=== PATIENT | female | born 1975 | race Caucasian/White ===

== ENCOUNTER 2016-11-22 22:38 | Observation (INO) | payer MEDICAID ==
--- NOTE | 2016-11-22 23:19 | ED PDOC ---
Arrival/HPI - General Historian: Patient, EMS, Police <Jeramy Welch - Last Filed: 11/23/16 02:03> <Hugo Caballero - Last Filed: 11/23/16 06:04> <Joselito Shi - Last Filed: 11/23/16 10:08> - General Chief Complaint: Alcohol Ingestion Time Seen by Provider: 11/22/16 23:15 - History of Present Illness Narrative History of Present Illness (Text): 11/22/16 23:16 41 y/o female, no pmh, nkda, limited HPI can be obtained, biba with the police, found agitated in the public with the facial injury with facial injury, last tetanus doesn't remember. Pt. stated that she wants to go home, yelling and screaming, no fever or chills, no homicidal or suicidal ideation, no auditory visual hallucination, limited HPI can be obtained due to the patient's uncooperative behavior. (Jeramy Welch) Past Medical History - Provider Review Nursing Documentation Reviewed: Yes - Psychiatric Hx Substance Use: No <Jeramy Welch - Last Filed: 11/23/16 02:03> Family/Social History - Physician Review Nursing Documentation Reviewed: Yes Family/Social History: Unknown Family HX Smoking Status: joaquín Hx Alcohol Use: Yes Hx Substance Use: No <Jeramy Welch - Last Filed: 11/23/16 02:03> Allergies/Home Meds <Jeramy Welch - Last Filed: 11/23/16 02:03> <Hugo Caballero - Last Filed: 11/23/16 06:04> <Joselito Shi - Last Filed: 11/23/16 10:08> Allergies/Adverse Reactions: Allergies No Known Allergies Allergy (Verified 11/22/16 23:18) Review of Systems - Review of Systems Systems not reviewed;Unavailable: Psychotic Constitutional: absent: Fatigue, Fevers Eyes: absent: Vision Changes ENT: absent: Hearing Changes Respiratory: absent: SOB, Cough Gastrointestinal: absent: Abdominal Pain, Diarrhea, Nausea, Vomiting Skin: Other (abrasion) Neurological: absent: Headache, Dizziness, Focal Weakness <Jeramy Welch - Last Filed: 11/23/16 02:03> Physical Exam - Physical Exam Physical Exam Limitations: Intoxication Vital Signs Reviewed: Yes Temperature: Afebrile Blood Pressure: Hypertensive Pulse: Tachycardic Respiratory Rate: Normal Appearance: Positive for: Well-Appearing, Non-Toxic Pain Distress: None - Systems Exam Head: Present: Other (+ttp and swelling abrasion abrasion the lt. frontal forehead region with no laceration. ) Pupils: Present: PERRL Extroacular Muscles: Present: EOMI Conjunctiva: Present: Normal Ears: Present: NORMAL TM, Normal Canal. No: Erythema Mouth: Present: Moist Mucous Membranes Neck: Present: Normal Range of Motion, Trachea Midline. No: Meningeal Signs, MIDLINE TENDERNESS, Paraspinal Tenderness, Lymphadenopathy Respiratory/Chest: Present: Clear to Auscultation, Good Air Exchange. No: Respiratory Distress, Accessory Muscle Use Cardiovascular: Present: Regular Rate and Rhythm, Normal S1, S2. No: Murmurs Abdomen: Present: Normal Bowel Sounds. No: Tenderness, Distention, Peritoneal Signs Back: Present: Normal Inspection. No: Midline Tenderness, Paraspinal Tenderness Upper Extremity: Present: Normal Inspection. No: Cyanosis, Edema Lower Extremity: Present: Normal Inspection. No: Edema Neurological: Present: GCS=15 Skin: Present: Warm, Dry, Normal Color. No: Rashes Psychiatric: Present: Alert, Normal Insight, Normal Concentration, Agitated, Intoxicated <Jeramy Welch - Last Filed: 11/23/16 02:03> Medical Decision Making - Transfer of Care Patient signed out to Dr:: Ada <Jeramy Welch - Last Filed: 11/23/16 02:03> <Hugo Caballero - Last Filed: 11/23/16 06:04> <Joselito Shi - Last Filed: 11/23/16 10:08> ED Course and Treatment: 11/22/16 23:19 -Pt. is in the ER agitated, yelling, restraint ordered as she is started to attacking the staffs, benadryl IM ordered for sedation, will order labs. 11/22/16 23:19 -CT Head and facial -Tetanus/IV banana bag -wound irrigated with normal saline, clean with betadine, bacitracin and gauze dressing. (Jeramy Welch) - RAD Interpretation Radiology Orders: 11/22/16 23:20 HEAD W/O CONTRAST [CT] Stat MAXILLOFACIAL W/O CONTRAST [CT] Stat - Medication Orders Current Medication Orders: Discontinued Medications Diphenhydramine HCl (Benadryl) 50 mg IM STAT STA Stop: 11/22/16 23:21 Last Admin: 11/23/16 00:07 Dose: 50 mg Multivitamins/Vitamin C 10 ml/Thiamine HCl 100 mg/ Folic Acid 1 mg/ Dextrose 1, 011.2 mls @ 1,000 mls/hr IV .Q1H1M ONE Stop: 11/23/16 00:21 Last Admin: 11/23/16 03:00 Dose: Not Given Non-Admin Reason: Agitation Lorazepam (Ativan) 2 mg IM ONCE ONE PRN Reason: Protocol Stop: 11/23/16 00:54 Last Admin: 11/23/16 01:01 Dose: 2 mg Tetanus/Reduced Diphtheria/Acell Pertussis (Boostrix Vaccine Inj) 0.5 ml IM .ONCE ONE Stop: 11/22/16 23:21 Last Admin: 11/23/16 03:00 Dose: ED OBSERVATION Date of observation admission: 11/23/16 Time of observation admission: 00:00 <Jeramy Welch - Last Filed: 11/23/16 02:03> <Hugo Caballero - Last Filed: 11/23/16 06:04> Discharge: Yes <Joselito Shi - Last Filed: 11/23/16 10:08> - Observation admission statement Patient is being placed in observation because:: etoh intoxication (Jeramy Welch) - Goals of Observation Goals of observation are:: sober (Jeramy Welch) - Progress Note Progress Note: 11/23/2016 00:00 -labs/CT head/IV banana bag/tetanus/wound irrigate and clean. -observe and reassess 11/23/16 00:53 -Pt. is agitated, threatened to leave, ativan 2mg ordered. 11/23/16 02:01 -Pt. is calmed now, agreed to the radiology testing. -Pending labs -Pending radiology studies. -Case discussed and sign out to the ER attending Dr. Caballero, pending for the dispo. (Jeramy Welch) 11/23/16 04:00 Pt refusing labs. Pt in no acute distress. Reviewed radiology, CT Head shows: Brain: Motion artifact limits evaluation for intracranial hemorrhage on several CT slices (series 2 images 20-24). Aside from the areas of artifact, there is no visualized acute intracranial hemorrhage. The base of the brain extends out of the [id number] of this study. The white- mcneill differentiation is preserved demonstrating no acute territorial type infarct. Midline shift: There is no midline shift. Ventricles: No ventriculomegaly. Bones/joints: The calvarium demonstrates no evidence for a depressed fracture. Soft tissues: There is soft tissue swelling/hematoma of the left frontal scalp. Sinuses: See facial CT report from the same day. Mastoid air cells: No mastoid effusion. IMPRESSION: 1. There is soft tissue swelling/hematoma of the left frontal scalp. 2. Motion artifact limits evaluation for intracranial hemorrhage on several CT slices. The base of the brain extends out of the [id number] of this study. Repeat/additional CT images are recommended. 3. Aside from the areas of limitation, there is no visualized acute intracranial hemorrhage. CT Maxillofacial shows: Bones/joints: No acute facial bone fracture. Soft tissues: There is soft tissue swelling/hematoma of the left frontal scalp and supraorbital region. Orbits: No acute abnormality. Sinuses: There is mild mucosal thickening of the right frontal sinus. IMPRESSION: 1. There is soft tissue swelling/hematoma of the left frontal scalp and supraorbital region. 2. No acute facial bone fracture. 3. Paranasal sinus disease is noted above. 11/23/16 07:[address] Shi, pending sobriety, re-evaluation, and final disposition. (Hugo Caballero) 11/23/16 07:00 Case endorsed to fl Dr. Caballero. Pending sobriety, reevaluation and final disposition. Currently patient is resting comfortably in the emergency department with stable vitals. 11/23/16 10:07 Patient is alert, oriented X3, and ambulatory with steady gait. Patient is stable for discharge. (Joselito Shi) - PA / RETAIL SALES DIRECTOR / Resident Statement / has reviewed & agrees with the documentation as recorded. <Jeramy Welch - Last Filed: 11/23/16 02:03> - PA / RETAIL SALES DIRECTOR / Resident Statement ZO has reviewed & agrees with the documentation as recorded. ZO has examined the patient and agrees with the treatment plan. <Hugo Caballero - Last Filed: 11/23/16 06:04> Disposition/Present on Arrival - Present on Arrival Any Indicators Present on Arrival: No History of DVT/PE: No History of Uncontrolled Diabetes: No Urinary Catheter: No History of Decub. Ulcer: No History Surgical Site Infection Following: None - Disposition Have Diagnosis and Disposition been Completed?: Yes Disposition Time: 23:22 <Jeramy Welch - Last Filed: 11/23/16 02:03> <Hugo Caballero - Last Filed: 11/23/16 06:04> - Disposition Patient Plan: Discharge <Joselito Shi - Last Filed: 11/23/16 10:08> - Disposition Diagnosis: Abrasion, Alcohol intoxication Patient Problems: Current Active Problems Problem Status Onset Abrasion Acute Alcohol intoxication Acute Condition: STABLE
[2016-11-22] MEDS ORDERED: DiphenhydrAMINE 50 mg/ml Inj IM STA (23:20)
[2016-11-22] MEDS ORDERED: TDAP Vaccine 0.5 mL Syr IM ONE (23:20)
[2016-11-22] MEDS ORDERED: Multivitamin (MVI) 10 ML, Thiamine 100 MG, Folic Acid 1 MG in Dextrose 5% In Water 1,00... IV ONE (23:21)
--- NOTE | 2016-11-23 02:24 | CT ---
EXAM: CT Maxillofacial Without Intravenous Contrast CLINICAL HISTORY: The patient age is 41 years old and is female; Injury or trauma; Fall; Initial encounter; Concussion /head injury; Loss of consciousness not known; Additional info: ETOH fall, injury Facility exam id and description: Ct faces maxillofacial w/o contrast TECHNIQUE: Axial computed tomography images of the face without intravenous contrast. This CT exam was performed using one or more of the following dose reduction techniques: automated exposure control, adjustment of the mA and/or kV according to patient size, and/or use of iterative reconstruction technique. Coronal and sagittal reformatted images were created and reviewed. EXAM DATE/TIME: 11/22/2016 11:20 PM COMPARISON: No relevant prior studies available. FINDINGS: Bones/joints: No acute facial bone fracture. Soft tissues: There is soft tissue swelling/hematoma of the left frontal scalp and supraorbital region. Orbits: No acute abnormality. Sinuses: There is mild mucosal thickening of the right frontal sinus. IMPRESSION: 1. There is soft tissue swelling/hematoma of the left frontal scalp and supraorbital region. 2. No acute facial bone fracture. 3. Paranasal sinus disease is noted above.
--- NOTE | 2016-11-23 02:32 | CT ---
EXAM: CT Head Without Intravenous Contrast CLINICAL HISTORY: The patient age is 41 years old and is female; Injury or trauma; Fall; Initial encounter; Concussion / head injury; Additional info: ETOH fall, injury Facility exam id and description: Ct heads head w/o contrast TECHNIQUE: Axial computed tomography images of the head/brain without intravenous contrast. This CT exam was performed using one or more of the following dose reduction techniques: automated exposure control, adjustment of the mA and/or kV according to patient size, and/or use of iterative reconstruction technique. EXAM DATE/TIME: 11/22/2016 11:20 PM COMPARISON: No relevant prior studies available. FINDINGS: Brain: Motion artifact limits evaluation for intracranial hemorrhage on several CT slices (series 2 images 20-24). Aside from the areas of artifact, there is no visualized acute intracranial hemorrhage. The base of the brain extends out of the [id number] of this study. The white-mcneill differentiation is preserved demonstrating no acute territorial type infarct. Midline shift: There is no midline shift. Ventricles: No ventriculomegaly. Bones/joints: The calvarium demonstrates no evidence for a depressed fracture. Soft tissues: There is soft tissue swelling/hematoma of the left frontal scalp. Sinuses: See facial CT report from the same day. Mastoid air cells: No mastoid effusion. IMPRESSION: 1. There is soft tissue swelling/hematoma of the left frontal scalp. 2. Motion artifact limits evaluation for intracranial hemorrhage on several CT slices. The base of the brain extends out of the [id number] of this study. Repeat/additional CT images are recommended. 3. Aside from the areas of limitation, there is no visualized acute intracranial hemorrhage.
[2016-11-23 10:01] VITALS: BP 116/81; PULSE 98; RESP 16; TEMP 98.5; O2SAT 100
== END 2016-11-23 10:09 | disposition home or self-care (01) ==
LOC: ED 22:38 → EROBSV 23:24
PROVIDERS: ADMIT Emergency Medicine; ATTEND Emergency Medicine
DX: F10.129 Alcohol abuse with intoxication, unspecified (principal); S00.81XA Abrasion of other part of head, initial encounter; X58.XXXA Exposure to other specified factors, initial encounter
CPT/HCPCS: 70450; 70486; 96372; 99284; G0378; J1200; J2060